=== PATIENT | male | born 1970 | race Caucasian/White ===

== ENCOUNTER 2017-09-04 11:35 | Emergency (ER) | payer OTHER, SELFPAY ==
[2017-09-04 11:36] VITALS: BP 131/77; PULSE 90; RESP 20; TEMP 36.8; O2SAT 95; BMI 31.6
--- NOTE | 2017-09-04 13:00 | HMH.EDBACK ---
ED Disposition Clinical Impression: Lumbar strain Qualifiers: Encounter type: initial encounter Qualified Code(s): S39.012A - Strain of muscle, fascia and tendon of lower back, initial encounter Disposition: Home, Self-Care Condition on Discharge: Good Instructions: DI for Low Back Pain Additional Instructions: Additional instructions for BACK PAIN: See your physician as soon as possible for further evaluation. Return immediately if back pain becomes intolerable, or if fever, numbness or weakness of your legs, loss of control of your bowels or bladder. Additional instructions for CONTROLLED SUBSTANCES: You have been prescribed a medication that is a controlled substance. Controlled substances include pain medications known as opiates and sedative nerve medications known as benzodiazepines. Some common opiates include: Codeine (such as Tylenol #3) Hydrocodone (Vicodin, Lortab, Lorcet, Ceres) Oxycodone (Percocet, Percodan, Oxycodone, Oxy IR) Some common benzodiazepines include: Diazepam (Valium) Lorazepam (Ativan) Alprazolam (Xanax) Clonazepam (Klonopin) Oxazepam (Serax) All of these controlled substances are highly addictive and frequently abused. Misuse can and frequently does lead to addiction as well as overdose and . Medication should be stored in a locked cabinet or other secure storage unit. Do not store the medication in a motor vehicle. Short term supplies, 3 days or less, are prescribed because of the highly addictive nature of the medication. Any of the controlled substance medication NOT taken should be disposed of properly and NOT SAVED. The recommended method of disposing of unused medications is: Place the medicines in a sealable plastic bag. If the medicine is a solid, crush it or add water to dissolve it. Add something undesirable (cat litter, coffee grounds, etc.) Dispose of sealed bag in household trash Do not flush or pour unused medicines down a sink or drain. Controlled substances should not be shared, given away or sold. Because of the addictive nature and frequent abuse, these medications are sometimes stolen. These medications should be kept in a safe place where they cannot be stolen. Do not keep them in your car or purse. Lost or stolen prescriptions for controlled substances WILL NOT BE REFILLED in this emergency department, regardless of whether a police report was filed. Prescriptions: Hydrocodone/Acetaminophen [Lortab 7.5/325mg tablet] 1 tab PO Q6HP PRN #12 tab PRN Reason: Moderate Pain Referrals: Clyde Allen MD [Staff Physician] - (ENT, for vertigo) Julio C Peace [Primary Care Provider] - 7-14 days Forms: Work/School Release - Critical Care Critical Care Time: No Attestation: On 09/04/17, the high probability of a clinically significant, sudden or life threatening deterioration of the following system(s) required my full and direct attention, intervention and personal management. The time I documented below is in addition to time spent performing reported procedures but includes the following listed in this critical care notation. Medical Decision Making - Arnaldo Inquiry Pt receiving controlled substance: Yes Arnaldo was queried for this patient: Yes Reference #:: [id number] Risks and benefits of using a controlled substance: were discussed with pt by me Comment: 3 rxs. last rx 20 percocet 7.5mg on 07/26/17. Vital Signs: 09/04/17 11:36 Temperature 98.3 F Temperature Source Oral Pulse Rate [Right Radial] 90 Respiratory Rate 20 Blood Pressure [Right Arm] 131/77 Blood Pressure Mean [Right Arm] 95 Blood Pressure Source [Right Arm] Automatic Cuff Blood Pressure Position [Right Arm] Sitting 02 Sat by Pulse Oximetry 95 Oxygen Delivery Method Room Air Back Pain HPI - General Chief Complaint: Back Pain/Injury Stated Complaint: back pain, no ao Time Seen by Provider: 09/04/17 13:15 Mode of Arrival: Ambulatory Limitations: No Limitations Desc
[2017-09-04 13:27] VITALS: BP 126/84; PULSE 87; RESP 20; TEMP 36.9; O2SAT 99
[2017-09-04 13:28] VITALS: BP 126/84; PULSE 87; RESP 20; TEMP 36.9; O2SAT 99
== END 2017-09-04 13:28 | disposition home or self-care (01) ==
PROVIDERS: Emergency Provider Emergency Medicine; PCP Family Medicine
DX: S39.012A Strain of muscle, fascia and tendon of lower back, initial encounter (principal)
CPT/HCPCS: 99281

== ENCOUNTER → 2021-07-14 14:51 | Outpatient (CLI) | payer MEDICAID, SELFPAY | PROVIDERS: Visit Provider Nurse Practitioner | DX: Z20.822 Contact with and (suspected) exposure to COVID-19 (principal) | CPT/HCPCS: C9803; U0003; U0005 ==

== ENCOUNTER 2022-10-20 16:56 | Emergency (ER) | payer MEDICAID, SELFPAY ==
[2022-10-20 16:57] VITALS: BP 147/92; PULSE 119; RESP 17; TEMP 36.9; O2SAT 97; BMI 28.8
--- NOTE | 2022-10-20 17:56 | XR_ITS ---
PROCEDURE INFORMATION: Exam: XR Left Shoulder Exam date and time: 10/20/2022 5:55 PM Age: 52 years old Clinical indication: Pain; Shoulder; Left; Additional info: Shoulder pain TECHNIQUE: Imaging protocol: Radiologic exam of the left shoulder. Views: 2 or more views. COMPARISON: No relevant prior studies available. FINDINGS: Bones/joints: No acute fracture or malalignment. Mild degenerative changes. Soft tissues: Unremarkable. IMPRESSION: 1. No evidence of acute osseous abnormality in the left shoulder. 2. Mild degenerative changes.
--- NOTE | 2022-10-20 17:57 | HMH.EDGENADL ---
Discharge Plan Disposition Patient Disposition: Home, Self-Care Prescriptions Prescriptions: No Action lisinopril 20 MG Tablet 20 mg PO DAILY meclizine 25 MG Tablet 25 mg PO DAILY hydrocodone-acetaminophen 1 TAB tablet 1 tab PO Q6HP PRN (Reason: Moderate Pain) Qty: 12 0RF Referrals Follow up/Referrals: Poli Salazar DO [Staff Physician] - See instructions Juan Ga [Primary Care Provider] - See instructions Blanca Hickman MD [Staff Physician] - See instructions Activity Restrictions/Add. Instructions Additional Instructions/Restrictions: At this time was felt you are safe to be discharged home. If new or worsening symptoms please do not hesitate to return the emergency department. Please call and schedule an appointment with orthopedics and neurology. Clinical Impressions Clinical Impression: Acute shoulder pain, Arm paresthesia, left Discharge ED Provider: Red Jean Baptiste General Adult HPI General Chief complaint: Extremity Injury, Upper Stated complaint: Left shoulder pain and numbness Time Seen by Provider: 10/20/22 17:57 Mode of Arrival: Ambulatory Source of Information: Patient Limitations: No Limitations Description of Symptoms (Recalled from ER Triage Doc. by RN): pt comes in with c/o left shoulder pain ongoing for 1 week. pt states that he feels like he has a catch is his muscle. pt reports saturday night he began to have numbness in his hand/fingers. stroke scale 0. pt states that he has no known injury to that arm/shoulder. pt works with horses and works stalls daily. History of Present Illness HPI narrative: Patient is a 52-year-old male who presents emergency department for left upper extremity complaints. Patient is left-handed, states that over the last 2 weeks he has had shoulder pain that is difficult with certain positions. 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 Due to shoulder pain he lays on his left side over the 2 weeks over his arm which improves his symptoms of pain in the shoulder allowing him to sleep. Over the last 4 days upon awakening he has had intermittent paresthesias from the shoulder down to his wrist and sometimes going down into his digits which improve intermittently throughout the day. Patient denies arm swelling, IV drug use, chest pain, shortness of breath, dysarthria, gait difficulty, acute extremity weakness. No other acute complaints at this time. Related Data Home Medications Medication Instructions Recorded Confirmed lisinopril 20 mg tablet 20 mg PO DAILY dizziness 09/04/17 09/04/17 meclizine 25 mg tablet 25 mg PO DAILY dizziness 09/04/17 09/04/17 Previous Rx's Medication Instructions Recorded hydrocodone 7.5 mg-acetaminophen 1 tab PO Q6HP PRN Moderate Pain 09/04/17 325 mg tablet #12 tabs Allergies Allergy/AdvReac Type Severity Reaction Status Date / Time Penicillins Allergy Mild Other Verified 10/20/22 17:14 [facility] Disclaimer: The information contained in this section may have been updated after the patient was seen, as this information can be updated by other users. Social History Smoking Status: Current every day smoker alcohol intake: never current occupational status: employed Travel in the last 8 weeks: None ROS Obtained: Yes Systems reviewed as appropriate & no additional complaints except as documented Physical Exam General General appearance: alert and in no apparent distress Head Head exam: atraumatic and normocephalic Eye Eye exam: Present PERRL and EOMI ENT ENT exam: Present mucous membranes moist Neck Neck exam: Present normal inspection Chest Chest inspection: Present normal inspection and symmetric chest wall rise Respiratory Respiratory exam: Present normal lung sounds bilaterally; Absent respiratory distress Cardiovascular Cardiovascular exam: Present regular rate and normal rhythm Abdominal Exam Abdominal exam: Present soft; Absent tenderne
[2022-10-20 18:03] VITALS: BP 140/85; PULSE 114; O2SAT 95
[2022-10-20 18:30] VITALS: BP 128/82; PULSE 100; O2SAT 98
[2022-10-20 18:54] VITALS: BP 127/87; PULSE 94; RESP 20; TEMP 36.9; O2SAT 97
== END 2022-10-20 18:55 | disposition home or self-care (01) ==
PROVIDERS: Emergency Provider Emergency Medicine; PCP Family Medicine
DX: M25.512 Pain in left shoulder (principal); F17.200 Nicotine dependence, unspecified, uncomplicated; X50.0XXA Overexertion from strenuous movement or load, initial encounter
CPT/HCPCS: 73030; 99283; 99284